=== PATIENT | male | born 1980 | race Caucasian/White ===

== ENCOUNTER → 2020-08-22 | Outpatient (CLI) | payer MEDICAID ==
[~2020-08-22] MED LIST: CEFAZOLIN SODIUM 1000MG/VIAL ONE; DEXAMETHASONE 4MG/ML 1ML VIAL ONE; EPHEDRINE SULFATE 50MG/ML VIAL ONE; FENTANYL CITRATE/PF 50MCG/ML 2ML VIAL ONE; FENTANYL CITRATE/PF 50MCG/ML 5ML VIAL ONE; GLYCOPYRROLATE 0.2 MG/ML 2ML VIAL ONE; METOCLOPRAMIDE HCL 10MG/2ML VIAL ONE; MIDAZOLAM HCL 2 MG/2 ML VIAL ONE; NEOSTIGMINE METHYLSULFATE 1MG/ML 10 ML VIAL ONE; ONDANSETRON HCL 4MG/2ML INJ ONE; PHENYLEPHRINE HCL 10 MG/ML 1ML (IV VIAL) IV ONE; PROPOFOL 200MG/20ML VIAL IV ONE; ROCURONIUM BROMIDE 10MG/ML VIAL 5ML IV ONE; SODIUM CHLORIDE 0.9% 10ML VIAL ONE; SUCCINYLCHOLINE CHLORIDE 200MG/10ML IV ONE
== END | disposition home or self-care (01) ==
LOC: LAB 07:53
PROVIDERS: ATTEND Neurological Surgery
DX: Z01.812 Encounter for preprocedural laboratory examination (principal); Z20.822 Contact with and (suspected) exposure to COVID-19
CPT/HCPCS: 87426

== ENCOUNTER 2020-08-23 05:28 | Inpatient (IN) | payer MEDICAID ==
[2020-08-23] VITALS (46 sets, daily range): BP systolic 93–164; BP diastolic 50–120
[~2020-08-23] VITALS: Ht 165.1 cm; Wt 85.5 kg
[2020-08-23] MEDS ORDERED: LACTATED RINGERS 1,000 ML IV SCH (06:20)
[2020-08-23] MEDS ORDERED: SODIUM CHLORIDE 0.9% INJ 10ML FLUSH IVF ONE (06:21)
[2020-08-23] MEDS ORDERED: BACITRACIN 15GM TUBE TOP ONE (06:21)
[2020-08-23] MEDS ORDERED: THROMBIN (BOVINE) 5000 UNITS/VIAL TOP ONE (06:21)
[2020-08-23] MEDS ORDERED: BACITRACIN 50,000 UNITS/VIAL ONE (06:22)
[2020-08-23] MEDS ORDERED: SODIUM CHLORIDE 0.9% 2,000 ML ONE (06:22)
[2020-08-23] MEDS ORDERED: CEFAZOLIN SODIUM 1000MG/VIAL IV SCH (14:00)
[2020-08-23] MEDS: DEXT 5%/LACTATED RINGERS 1,000 ML IV SCH ×2 (14:12→23:09)
[2020-08-23] MEDS ORDERED: ONDANSETRON INJ IV PRN (14:30)
[2020-08-23] MEDS ORDERED: DIPHENHYDRAMINE INJ IV PRN (14:30)
[2020-08-23] MEDS ORDERED: NALOXONE INJ IV PRN (14:30)
[2020-08-23] MEDS ORDERED: HYDROMORPHONE HCL/PF 2MG/ML CPJ IV NR (14:30)
[2020-08-23] MEDS: MORPHINE SULFATE 4 MG/ML CPJ (NOT FOR IM USE) IV PRN ×4 (14:55→23:56)
[2020-08-23] MEDS: NICARDIPINE 100 MG in SODIUM CHLORIDE 0.9% 60 ML IV PRN ×2 (15:09→21:20)
[2020-08-23] MEDS: HYDROMORPHONE PCA 10MG/50ML IV PRN ×2 (15:26→15:58)
[2020-08-23 16:54] LABS: HEMATOCRIT. 47.1 % (42.0-52.0); HEMOGLOBIN. 15.8 g/dL (14.0-18.0); MEAN CORPUSCULAR HEMOGLOBIN 28.4 pg (28.0-32.0); MEAN CORPUSCULAR VOLUME 84.5 fL (80.0-94.0); PLATELET 145 x1000/uL (130-400); RED BLOOD CELL COUNT 5.57 mill/uL (4.7-6.1); RED CELL DISTRIBUTION WIDTH 13.2 % (11.6-14.6)
[2020-08-23] MEDS ORDERED: INFLUENZA VACCINE 05/PF 0.5 ML VIAL IM ONE (17:30)
[2020-08-23 17:31] LABS: CHLORIDE 110 mEq/L (98-107)
[2020-08-23] MEDS: DEXAMETHASONE 4MG/ML 1ML VIAL IV SCH ×2 (17:45→23:08)
[2020-08-23 17:47] LABS: PLATELET ESTIMATE NORMAL
[2020-08-23] MEDS: CEFAZOLIN 1000MG PREMIX 50 ML IV SCH (18:06)
[2020-08-24] VITALS (101 sets, daily range): BP systolic 93–211; BP diastolic 41–96
[2020-08-24] MEDS: MORPHINE SULFATE 4 MG/ML CPJ (NOT FOR IM USE) IV PRN ×7 (03:05→23:26)
[2020-08-24] MEDS: CEFAZOLIN 1000MG PREMIX 50 ML IV SCH ×2 (03:30→10:29)
[2020-08-24] MEDS: NICARDIPINE 100 MG in SODIUM CHLORIDE 0.9% 60 ML IV PRN ×3 (04:28→17:50)
[2020-08-24 05:12] LABS: HEMATOCRIT. 46.9 % (42.0-52.0); HEMOGLOBIN. 15.6 g/dL (14.0-18.0); MEAN CORPUSCULAR HEMOGLOBIN 28.1 pg (28.0-32.0); MEAN CORPUSCULAR VOLUME 84.6 fL (80.0-94.0); MEAN PLATELET VOLUME 8.9 fl (7.4-10.4); PLATELET 157 x1000/uL (130-400); RED BLOOD CELL COUNT 5.55 mill/uL (4.7-6.1)
[2020-08-24 05:20] LABS: CHLORIDE 107 mEq/L (98-107)
[2020-08-24] MEDS: DEXAMETHASONE 4MG/ML 1ML VIAL IV SCH ×3 (05:38→17:49)
[2020-08-24] MEDS: DEXT 5%/LACTATED RINGERS 1,000 ML IV SCH ×2 (10:30→23:27)
[2020-08-24 10:41] LABS: PLATELET ESTIMATE NORMAL
[2020-08-24] MEDS ORDERED: AMLODIPINE 5MG TABLET PO NR (12:30)
[2020-08-25] VITALS (51 sets, daily range): BP systolic 105–148; BP diastolic 57–94
[2020-08-25] MEDS: NICARDIPINE 100 MG in SODIUM CHLORIDE 0.9% 60 ML IV PRN (01:39)
[2020-08-25] MEDS: MORPHINE SULFATE 4 MG/ML CPJ (NOT FOR IM USE) IV PRN ×3 (02:25→23:05)
[2020-08-25 05:34] LABS: CHLORIDE 105 mEq/L (98-107); HEMATOCRIT. 44.8 % (42.0-52.0); HEMOGLOBIN. 15.2 g/dL (14.0-18.0); MEAN CORPUSCULAR HEMOGLOBIN 28.8 pg (28.0-32.0); MEAN PLATELET VOLUME 8.4 fl (7.4-10.4); PLATELET 163 x1000/uL (130-400); RED BLOOD CELL COUNT 5.27 mill/uL (4.7-6.1); RED CELL DISTRIBUTION WIDTH 13.2 % (11.6-14.6)
[2020-08-25] MEDS: AMLODIPINE 5MG TABLET PO SCH (09:00)
[2020-08-25] MEDS: DEXT 5%/LACTATED RINGERS 1,000 ML IV SCH (09:05)
[2020-08-25 09:40] LABS: PLATELET ESTIMATE NORMAL
[2020-08-25] MEDS ORDERED: DEXTROSE 50% WATER 50ML SYRINGE IV PRN (18:00)
[2020-08-25] MEDS: BLOOD SUGAR DIAGNOSTIC STRIP TEST SCH (20:03)
[2020-08-25] MEDS: INSULIN LISPRO 100 UNITS/ML SUBCUT SCH (20:04)
[2020-08-26] VITALS: BP 114/70
[2020-08-26] MEDS: MORPHINE SULFATE 4 MG/ML CPJ (NOT FOR IM USE) IV PRN ×2 (02:42→05:12)
[2020-08-26 04:00] VITALS: BP 126/79
[2020-08-26] MEDS: BLOOD SUGAR DIAGNOSTIC STRIP TEST SCH (05:15)
[2020-08-26] MEDS: INSULIN LISPRO 100 UNITS/ML SUBCUT SCH (05:15)
[2020-08-26 08:00] VITALS: BP 119/87
[2020-08-26] MEDS: AMLODIPINE 5MG TABLET PO SCH (08:43)
[2020-08-26 09:53] VITALS: BP 119/87
== END 2020-08-26 10:20 | disposition home or self-care (01) | DRG 321 ==
LOC: OR 05:28 → MICUSO 05:29 → EDSTATUS 07:00 → 5WST 08-25 17:12
PROVIDERS: ADMIT Neurological Surgery; ATTEND Neurological Surgery
PROC: 0RG20A0 Fusion of 2 or more Cervical Vertebral Joints with Interbody Fusion Device, Anterior Approach, Anterior Column, Open Approach (ICD-10-PCS; principal; 2020-08-23)
PROC: 0RB30ZZ Excision of Cervical Vertebral Disc, Open Approach (ICD-10-PCS; 2020-08-23)
PROC: 00NW0ZZ Release Cervical Spinal Cord, Open Approach (ICD-10-PCS; 2020-08-23)
PROC: 4A11X4G Monitoring of Peripheral Nervous Electrical Activity, Intraoperative, External Approach (ICD-10-PCS; 2020-08-23)
DX: M48.02 Spinal stenosis, cervical region (principal); M50.222 Other cervical disc displacement at C5-C6 level; M50.221 Other cervical disc displacement at C4-C5 level; G82.50 Quadriplegia, unspecified; I10 Essential (primary) hypertension; G95.20 Unspecified cord compression; M47.9 Spondylosis, unspecified; F17.210 Nicotine dependence, cigarettes, uncomplicated; F12.90 Cannabis use, unspecified, uncomplicated; M54.12 Radiculopathy, cervical region
CPT/HCPCS: 36415; 72040; 72141; 76000; 80048; 82962; 83036; 84145; 85025; 86850; 86900; 88304; 88311; 90686; 97116; 97162; 97166; 97530; 97535; C1713; J0330; J0690; J1100; J1170; J1200; J2250; J2270; J2370; J2405; J2704; J2710; J2765; J3010; J3490; J7030; J7050; J7121; L0172; C1762